=== PATIENT | female | born 1955 | race Caucasian/White ===

== ENCOUNTER → 2017-01-01 | Outpatient (CLI) | payer OTHER ==
[~2017-01-01] MED LIST: AMARYL 2MG T2 MG/TAB PO; CALCIUM + D 6001 TA1 PO; CRESTOR5 MG PO; GLUCOPHAGE XR500 M1 PO; NORCO 325 MG-51 TAB PO; PRINIVIL2.5 MG PO
== END ==
LOC: COL.RAD 07:30
PROVIDERS: Internal Medicine
DX: H54.61 Unqualified visual loss, right eye, normal vision left eye (principal); G31.89 Other specified degenerative diseases of nervous system
CPT/HCPCS: A9585

== ENCOUNTER → 2017-09-20 | Outpatient (CLI) | payer OTHER | LOC: MC.RAD 16:17 | DX: Z12.31 Encounter for screening mammogram for malignant neoplasm of breast (principal) ==

== ENCOUNTER → 2019-02-18 | Outpatient (CLI) | payer OTHER | LOC: MC.RAD 16:30 | DX: Z12.31 Encounter for screening mammogram for malignant neoplasm of breast (principal) ==

== ENCOUNTER → 2020-03-23 | Outpatient (CLI) | payer OTHER | LOC: MC.RAD 08:47 | DX: Z12.31 Encounter for screening mammogram for malignant neoplasm of breast (principal) ==

== ENCOUNTER → 2021-03-30 | Outpatient (CLI) | payer BC | LOC: MC.RAD 08:15 | DX: Z12.31 Encounter for screening mammogram for malignant neoplasm of breast (principal) ==

== ENCOUNTER 2022-01-04 11:13 | Emergency (ER) | payer SELFPAY ==
[~2022-01-04] VITALS: Ht 162.6 cm; Wt 60.5 kg
[2022-01-04 11:37] VITALS: TEMP 98.2
[2022-01-04 14:02] VITALS: BP 160/105; PULSE 72
== END 2022-01-04 14:40 | disposition home or self-care (01) ==
LOC: COL.ER 11:13
DX: S06.0X0A Concussion without loss of consciousness, initial encounter (principal); S01.01XA Laceration without foreign body of scalp, initial encounter; W01.198A Fall on same level from slipping, tripping and stumbling with subsequent striking against other object, initial encounter; Y93.01 Activity, walking, marching and hiking

== ENCOUNTER → 2022-03-13 | Outpatient (CLI) | payer BC | LOC: COL.RAD 09:08 | DX: S32.9XXD Fracture of unspecified parts of lumbosacral spine and pelvis, subsequent encounter for fracture with routine healing (principal); X58.XXXD Exposure to other specified factors, subsequent encounter; R74.8 Abnormal levels of other serum enzymes | CPT/HCPCS: A9503 ==

== ENCOUNTER → 2022-04-25 | Outpatient (CLI) | payer BC | LOC: MC.RAD 14:45 | DX: Z12.31 Encounter for screening mammogram for malignant neoplasm of breast (principal); R92.0 Mammographic microcalcification found on diagnostic imaging of breast ==

== ENCOUNTER → 2022-05-24 | Outpatient (CLI) | payer BC | LOC: MC.RAD 09:45 | DX: R92.0 Mammographic microcalcification found on diagnostic imaging of breast (principal) ==

== ENCOUNTER 2022-07-16 20:52 | Inpatient (IN) | payer MEDICARE, BC ==
[~2022-07-16] VITALS: Ht 157.5 cm; Wt 54.0 kg
[2022-07-16 22:26] LABS: HEMOGLOBIN 12.3 g/dl (12.5-16.0); MEAN CELL VOLUME 85 fl (80.0-100.0); MEAN CORPUSCULAR HEMOGLOBIN 28 pg (27-31); MEAN CORPUSCULAR HGB CONC 34 g/dl (33.0-37.0); MEAN PLATELET VOLUME 10.4 fl (7.4-10.4); PLATELET COUNT 266 K/mm3 (130-400); RED BLOOD COUNT 4.33 M/mm3 (4.10-5.30); REDCELL DISTRIBUTION WIDTH-CV 12.5 % (11.5-14.5)
[2022-07-16 22:31] LABS: HEMATOCRIT 36.7 % (37.0-47.0)
[2022-07-16 22:43] LABS: ALANINE AMINOTRANSFERASE 13 U/L (0-55); ALKALINE PHOSPHATASE 100 U/L (40-150); ANION GAP 16 mmol/L (7-16); AST,SGOT 14 U/L (5-34); BILIRUBIN,TOTAL 1.4 mg/dL (0.2-1.2); BLOOD UREA NITROGEN 13 mg/dL (10-20); CALCIUM 9.6 mg/dL (8.4-10.2); CARBON DIOXIDE 23 mmol/L (23-31); CHLORIDE 94 mmol/L (98-107); CREATININE, serum 0.84 mg/dL (0.57-1.11); GLUCOSE 345 mg/dL (70-99); POTASSIUM 4.2 mmol/L (3.5-4.5); SODIUM 133 mmol/L (136-145); TOTAL PROTEIN 6.9 gm/dL (6.2-8.1)
[2022-07-16 22:48] LABS: BAND 8 % (0-10); EOSINOPHIL 1 % (0-4); LYMPHOCYTE 5 % (20.0-51.0); NEUTROPHILS 80 % (42.0-75.2); PLATELET ESTIMATE NORMAL (NORMAL)
[2022-07-16 23:01] LABS: ACETONE,SERUM NEGATIVE
[2022-07-16 23:19] LABS: MUCOUS Present (NOT PRESENT); SQUAMOUS EPITHELIAL 0-2 /hpf (0-10); URINE BACTERIA None Seen /hpf (NONE SEEN); URINE RBC >50 /hpf (0-2)
[2022-07-16 23:21] LABS: URINE APPEARANCE Clear (CLEAR/HAZY); URINE COLOR Yellow (YELLOW); URINE GLUCOSE 3+ (NEGATIVE); URINE PROTEIN(semi-quant) Negative (NEGATIVE)
[2022-07-16 23:22] LABS: URINE BLOOD 2+ (NEGATIVE); URINE KETONE 3+ (NEGATIVE); URINE NITRATE Negative (NEGATIVE); URINE UROBILINOGEN 0.2 E.U/dL (0.2-1.0)
[2022-07-16 23:24] LABS: TRICYCLIC ANTIDEPRESS URINE NEGATIVE
[2022-07-16] MEDS ORDERED: TOPROL XL 25MG25 MG PO (23:32)
[2022-07-16] MEDS ORDERED: CYMBALTA 60MG60 MG PO (23:32)
[2022-07-16] MEDS ORDERED: MOBIC15 MG PO (23:33)
[2022-07-16] MEDS ORDERED: PRAVACHOL80 MG PO (23:33)
[2022-07-17] VITALS (7 sets, daily range): BP systolic 131–148; BP diastolic 57–74; PULSE 77–109; TEMP 98–99.1
--- NOTE | 2022-07-17 02:25 | NUR ---
PT admitted to room 357 per cart from ED, awake and alert, IVF infusing @125 cc/hr per LH. INT to LAC patent/secure, right arm in sling, bruising to upper shoulder area noted. pt reports mild pain at this time. pt is [place], but responds to some questions appropriately but trouble getting right word out, asked for month, states "sunday" asked for year again "sunday" becomes easily frustrated. oriented to room and poc.
--- NOTE | 2022-07-17 03:27 | NUR ---
Dr Lerma notified of ortho consult
--- NOTE | 2022-07-17 03:31 | NUR ---
Marcella Cortez MATERIAL PLANNING ANALYST notified of 3hr troponin 0.062
--- NOTE | 2022-07-17 04:30 | NUR ---
16f chavez catheter placed using sterile technique, immediate return of cloudy, yellow urine, balloon inflated with 10cc sterile H2O, pt tolerated well.
[2022-07-17 06:26] LABS: BASO # 0.1 K/mm3 (0.0-0.2); BASO % 0.4 % (0.0-2.0); GRAN # 8.9 K/mm3 (1.4-6.5); GRAN % 77.8 % (42.2-75.2); HEMOGLOBIN 10.5 g/dl (12.5-16.0); LYMPH % 8.5 % (20.0-51.0); MEAN CELL VOLUME 85 fl (80.0-100.0); MEAN CORPUSCULAR HEMOGLOBIN 28 pg (27-31); MEAN CORPUSCULAR HGB CONC 33 g/dl (33.0-37.0); MEAN PLATELET VOLUME 11.4 fl (7.4-10.4); MONO # 1.5 K/mm3 (0.1-0.6); PLATELET COUNT 262 K/mm3 (130-400); RED BLOOD COUNT 3.71 M/mm3 (4.10-5.30); REDCELL DISTRIBUTION WIDTH-CV 12.6 % (11.5-14.5)
--- NOTE | 2022-07-17 06:26 | NUR ---
pt continues to have some difficulty finding words, but able to verbalize needs, IVF infusing per piv @125 cc/hr, chavez patent/secure, reports pain as mild with movement, right arm in sling. required SSI @ 0400, feliz. hearing aides in place, does not have her glasses with her.
--- NOTE | 2022-07-17 06:37 | NUR ---
Dr Zayas paged for cardio consult, no return call yet
[2022-07-17 06:38] LABS: HEMATOCRIT 31.5 % (37.0-47.0)
[2022-07-17 07:19] LABS: CALCIUM 8.6 mg/dL (8.4-10.2); CREATININE, serum 0.75 mg/dL (0.57-1.11); POTASSIUM 3.9 mmol/L (3.5-4.5)
--- NOTE | 2022-07-17 08:00 | NUR ---
Patient is resting in bed, alert but partially oriented, hard of hearing and difficulty to express herself. Receiving 125 ml/hr NS and antibiotics per orders. Telemetry in place, AFIB. Assessment completed, no other needs at this time. Call light at reach, bed alarm on.
[2022-07-17 08:03] LABS: COLLECTION METHOD CATHETER
--- NOTE | 2022-07-17 13:35 | NUR ---
Mergers And Acquisitions Associate met with patient to discuss discharge planning. Patient's son, Bart (ph#[phone]) is at bedside and assisted with intake. Patient lives in [place] with her son, Bart and sees Dr. Mendez for primary care. Patient has medications mailed to her home and Bart reports she is normally independent with ADLS. Patient was previously employed as a PT. Patient has a rollator for ambulation. CHRIS reviewed recommendation for post acute rehab and Bart advised patient will likely not consider a SNF, however would be interested in IPR. CHRIS contacted Claudia, IPR Director to give referral. Discharge Plan: IPR Screen
--- NOTE | 2022-07-17 15:21 | NUR ---
Zeinab: Restorationist Situation: peripheral vascular tech went by room on rounds Background: Pt was resting and content Assessment: no needs right now, pt appreciated the visit Recommendation: peripheral vascular tech will follow up as needed
--- NOTE | 2022-07-17 17:46 | NUR ---
Patient has been resting in bed most of the time. Refuses eating but ST swallow test indicates no problems. Continues receiving NS 75ML/HR. ACHS. Awaiting IPR screening. Report will be given to night RN.
[2022-07-18 03:21] VITALS: BP 108/80; PULSE 103; TEMP 98.4
[2022-07-18 06:27] LABS: BASO % 0.4 % (0.0-2.0); EOS % 0.4 % (0.0-4.0); GRAN # 6.1 K/mm3 (1.4-6.5); GRAN % 76.3 % (42.2-75.2); HEMOGLOBIN 10.3 g/dl (12.5-16.0); LYMPH # 0.8 K/mm3 (1.2-3.4); LYMPH % 9.7 % (20.0-51.0); MEAN CELL VOLUME 89 fl (80.0-100.0); MEAN CORPUSCULAR HEMOGLOBIN 30 pg (27-31); MEAN CORPUSCULAR HGB CONC 33 g/dl (33.0-37.0); MEAN PLATELET VOLUME 11.5 fl (7.4-10.4); MONO % 12.7 % (1.7-9.3); PLATELET COUNT 215 K/mm3 (130-400); RED BLOOD COUNT 3.49 M/mm3 (4.10-5.30); REDCELL DISTRIBUTION WIDTH-CV 13.1 % (11.5-14.5)
[2022-07-18 06:57] LABS: CALCIUM 8.5 mg/dL (8.4-10.2); CREATININE, serum 0.73 mg/dL (0.57-1.11); POTASSIUM 3.5 mmol/L (3.5-4.5)
[2022-07-18 06:59] LABS: CHOLESTEROL RISK RATIO 4.1
[2022-07-18 09:00] VITALS: BP 173/74; PULSE 90; TEMP 98.7
[2022-07-18 12:13] VITALS: BP 140/88; PULSE 75; TEMP 98.4
[2022-07-18 16:10] VITALS: BP 178/86; PULSE 80; TEMP 98.7
[2022-07-18 19:43] VITALS: BP 201/89; PULSE 83; TEMP 97.4
[2022-07-18 23:39] VITALS: BP 189/85; PULSE 82; TEMP 98.5
[2022-07-19 03:25] VITALS: BP 174/85; PULSE 77; TEMP 98.6
[2022-07-19 06:29] LABS: CALCIUM 8.5 mg/dL (8.4-10.2); CREATININE, serum 0.74 mg/dL (0.57-1.11); POTASSIUM 3.6 mmol/L (3.5-4.5)
[2022-07-19 06:48] LABS: BASO % 0.3 % (0.0-2.0); EOS # 0.1 K/mm3 (0.0-0.7); EOS % 1.5 % (0.0-4.0); GRAN # 4.6 K/mm3 (1.4-6.5); GRAN % 67.7 % (42.2-75.2); LYMPH % 15.1 % (20.0-51.0); MEAN CELL VOLUME 86 fl (80.0-100.0); MEAN CORPUSCULAR HGB CONC 33 g/dl (33.0-37.0); MEAN PLATELET VOLUME 10.7 fl (7.4-10.4); MONO % 15.1 % (1.7-9.3); PLATELET COUNT 217 K/mm3 (130-400); RED BLOOD COUNT 3.43 M/mm3 (4.10-5.30); REDCELL DISTRIBUTION WIDTH-CV 12.9 % (11.5-14.5)
[2022-07-19 06:52] LABS: HEMATOCRIT 29.6 % (37.0-47.0); HEMOGLOBIN 9.8 g/dl (12.5-16.0); MEAN CORPUSCULAR HEMOGLOBIN 29 pg (27-31)
[2022-07-19 07:15] VITALS: BP 170/87; PULSE 88; TEMP 98.3
--- NOTE | 2022-07-19 08:00 | NUR ---
Patient is lying in bed, alert and more interactive. Receiving 60ml/hr 1/2 NS. Complains of pain in her shoulder. Assessment completed, no other needs at this time. Call light within reach.
[2022-07-19 11:01] VITALS: PULSE 88; TEMP 98.3
[2022-07-19 11:43] VITALS: BP 161/90
--- NOTE | 2022-07-19 14:20 | NUR ---
Edge Stripper collaborated with Claudia, [facility] Director who is still following patient's case and would like to see how patient does with therapy today. Claudia will review this with [facility] Central Sterile Supply Technician. CHRIS updated patient and her family.
[2022-07-19 15:51] VITALS: BP 142/66; PULSE 77; TEMP 98.2
--- NOTE | 2022-07-19 18:46 | NUR ---
Patient has been alert and more oriented. She was able to ambulate in the halls with PT. She asks for pain medication and help to use the commode. She does not eat a lot. Able to take medications po. Guerra in place clear yellow output. Reopt will be given to night RN.
[2022-07-19 20:00] VITALS: BP 168/74; PULSE 71; TEMP 98.8
[2022-07-20 00:35] VITALS: BP 156/78; PULSE 87; TEMP 98.3
[2022-07-20 04:32] VITALS: BP 144/80; PULSE 78; TEMP 98.8
--- NOTE | 2022-07-20 06:21 | NUR ---
alert and oriented, pain controlled with po pain meds, scott patent/secure. required SSI @ HS. rt arm in sling.
[2022-07-20 08:00] VITALS: BP 140/80; PULSE 78; TEMP 98
--- NOTE | 2022-07-20 08:11 | NUR ---
Student will be assisting primary saurabh Quach RN and providing care for this patient from [phone]
[2022-07-20] MEDS ORDERED: NORVASC 5MG5 MG/TAB PO (09:25)
[2022-07-20] MEDS ORDERED: PLAVIX 75MG TAB75 MG PO (09:25)
[2022-07-20] MEDS ORDERED: ASPIRIN 81M81 MG/TA2 PO (09:26)
[2022-07-20] MEDS ORDERED: ROXICODONE 55 MG/TAB PO (09:26)
[2022-07-20] MEDS ORDERED: TYLENOL 325MG325 MG PO (09:27)
[2022-07-20] MEDS ORDERED: COLACE 100100 MG/CAP PO (09:27)
[2022-07-20] MEDS ORDERED: PEPCID 20MG TAB20 MG PO (09:29)
[2022-07-20] MEDS ORDERED: NOVOLOG 100U100 U/M1 SQ (09:33)
[2022-07-20] MEDS ORDERED: LEVEMIR100 U/ML SQ (09:33)
--- NOTE | 2022-07-20 10:39 | NUR ---
Patient to discharge to [facility] today.
[2022-07-20 11:15] VITALS: BP 135/70; PULSE 70; TEMP 98.2
--- NOTE | 2022-07-20 13:53 | NUR ---
Primary nurse was assisted with [phone] patient care by [facility] student Joellen Santos and [employer] instructor Adela SMITH-CANDI RN
== END 2022-07-20 14:58 | DRG 64 ==
LOC: COL.ER 20:52 → MEDICAL 07-17 → COL.ER 07-17 00:20 → MEDICAL 07-17 21:00
PROVIDERS: Nurse Practitioner Family; Nurse Practitioner Primary Care; Student in an Organized Health Care Education/Training Program; ADMIT Internal Medicine
PROC: 4A03X5D Measurement of Arterial Flow, Intracranial, External Approach (ICD-10-PCS; principal; 2022-07-17)
DX: I63.9 Cerebral infarction, unspecified (principal); J18.9 Pneumonia, unspecified organism; I21.A1 Myocardial infarction type 2; G93.49 Other encephalopathy; N39.0 Urinary tract infection, site not specified; E87.2 Acidosis; E87.1 Hypo-osmolality and hyponatremia; R65.10 Systemic inflammatory response syndrome (SIRS) of non-infectious origin without acute organ dysfunction; R47.01 Aphasia; R29.711 NIHSS score 11; S42.021A Displaced fracture of shaft of right clavicle, initial encounter for closed fracture; W01.0XXA Fall on same level from slipping, tripping and stumbling without subsequent striking against object, initial encounter; R47.1 Dysarthria and anarthria; I10 Essential (primary) hypertension; E78.5 Hyperlipidemia, unspecified; D72.829 Elevated white blood cell count, unspecified; D64.9 Anemia, unspecified; E87.8 Other disorders of electrolyte and fluid balance, not elsewhere classified; E11.65 Type 2 diabetes mellitus with hyperglycemia; Z79.84 Long term (current) use of oral hypoglycemic drugs; Y92.89 Other specified places as the place of occurrence of the external cause; Z90.49 Acquired absence of other specified parts of digestive tract; Y93.89 Activity, other specified; Z88.8 Allergy status to other drugs, medicaments and biological substances; Z23 Encounter for immunization
CPT/HCPCS: A4314; A9575; J1650; J1815; J2270; J2543; J7030; Q9967

== ENCOUNTER 2022-09-07 13:44 | Emergency (ER) | payer MEDICARE, BC ==
[~2022-09-07] VITALS: Ht 160 cm; Wt 50.0 kg
[2022-09-07] VITALS (189 sets, daily range): BP systolic 133; BP diastolic 66; PULSE 78; TEMP 97.5; O2SAT 79–99
[~2022-09-07 13:44] MED LIST changes: +ASPIRIN 81M81 MG/TA2 PO; +COLACE 100100 MG/CAP PO; +CYMBALTA 60MG60 MG PO; +INSULIN PEN NE1 EAC1 MC; +LEVEMIR FLEX100 U/ML SQ; +LEVEMIR100 U/ML SQ; +MOBIC15 MG PO; +NORVASC 5MG5 MG/TAB PO; +NOVOLOG 100U100 U/M1 SQ; +PEPCID 20MG TAB20 MG PO; +PLAVIX 75MG TAB75 MG PO; +PRAVACHOL80 MG PO; +ROXICODONE 55 MG/TAB PO; +TOPROL XL 25MG25 MG PO; +TOPROL XL 50MG50 MG PO; +TYLENOL 325MG325 MG PO
[2022-09-07 15:02] LABS: BASO # 0.1 K/mm3 (0.0-0.2); BASO % 0.4 % (0.0-2.0); EOS % 0.2 % (0.0-4.0); GRAN # 12.4 K/mm3 (1.4-6.5); GRAN % 85.3 % (42.2-75.2); HEMOGLOBIN 11.3 g/dl (12.5-16.0); LYMPH # 0.7 K/mm3 (1.2-3.4); LYMPH % 4.5 % (20.0-51.0); MEAN CELL VOLUME 92 fl (80.0-100.0); MEAN CORPUSCULAR HEMOGLOBIN 29 pg (27-31); MEAN CORPUSCULAR HGB CONC 32 g/dl (33.0-37.0); MEAN PLATELET VOLUME 10.5 fl (7.4-10.4); MONO # 1.3 K/mm3 (0.1-0.6); MONO % 9.1 % (1.7-9.3); PLATELET COUNT 285 K/mm3 (130-400); REDCELL DISTRIBUTION WIDTH-CV 13.2 % (11.5-14.5)
[2022-09-07 15:04] LABS: HEMATOCRIT 35.8 % (37.0-47.0)
[2022-09-07 15:19] LABS: ALBUMIN 3.9 gm/dL (3.4-4.8); BILIRUBIN,TOTAL 0.6 mg/dL (0.2-1.2); CREATININE, serum 0.82 mg/dL (0.57-1.11); POTASSIUM 4.2 mmol/L (3.5-4.5); TOTAL PROTEIN 7.1 gm/dL (6.2-8.1)
[2022-09-07 17:31] LABS: COLLECTION METHOD CLEAN CATCH
[2022-09-07 18:07] LABS: PH 5.5 (5.0-8.5); URINE APPEARANCE Cloudy (CLEAR/HAZY); URINE BLOOD 2+ (NEGATIVE); URINE COLOR Yellow (YELLOW); URINE GLUCOSE 2+ (NEGATIVE); URINE KETONE 2+ (NEGATIVE); URINE NITRATE Negative (NEGATIVE); URINE PROTEIN(semi-quant) Negative (NEGATIVE); URINE UROBILINOGEN 0.2 E.U/dL (0.2-1.0)
[2022-09-07 18:22] LABS: SQUAMOUS EPITHELIAL 0-2 /hpf (0-10); URINE BACTERIA None Seen /hpf (NONE SEEN); URINE RBC 20-50 /hpf (0-2)
[2022-09-07] MEDS ORDERED: PERCOCET 325 MG1 TA2 PO ×2 (19:02)
[2022-09-07] MEDS ORDERED: FLOMAX 0.40.4 MG/CAP PO (19:04)
== END 2022-09-07 19:51 | disposition home or self-care (01) ==
LOC: COL.ER 13:44
PROVIDERS: Physician Assistant
DX: N20.2 Calculus of kidney with calculus of ureter (principal); D72.829 Elevated white blood cell count, unspecified; E11.9 Type 2 diabetes mellitus without complications; Z28.310 Unvaccinated for COVID-19
CPT/HCPCS: J2270; J2405; J7030; Q9967

== ENCOUNTER 2022-09-09 12:49 | Inpatient (IN) | payer MEDICARE, BC ==
[~2022-09-09] VITALS: Ht 160 cm; Wt 50.0 kg
[~2022-09-09 12:49] MED LIST changes: +FLOMAX 0.40.4 MG/CAP PO; +PERCOCET 325 MG1 TA2 PO
[2022-09-09 13:17] LABS: BASO # 0.1 K/mm3 (0.0-0.2); BASO % 0.5 % (0.0-2.0); EOS # 0.2 K/mm3 (0.0-0.7); EOS % 1.5 % (0.0-4.0); GRAN # 10.7 K/mm3 (1.4-6.5); GRAN % 86.2 % (42.2-75.2); HEMOGLOBIN 10.2 g/dl (12.5-16.0); LYMPH # 0.3 K/mm3 (1.2-3.4); LYMPH % 2.4 % (20.0-51.0); MEAN CORPUSCULAR HEMOGLOBIN 29 pg (27-31); MEAN CORPUSCULAR HGB CONC 34 g/dl (33.0-37.0); MEAN PLATELET VOLUME 10.6 fl (7.4-10.4); MONO # 1.1 K/mm3 (0.1-0.6); MONO % 8.9 % (1.7-9.3); PLATELET COUNT 213 K/mm3 (130-400); RED BLOOD COUNT 3.51 M/mm3 (4.10-5.30); REDCELL DISTRIBUTION WIDTH-CV 13.3 % (11.5-14.5)
[2022-09-09 13:18] LABS: HEMATOCRIT 30.4 % (37.0-47.0); MEAN CELL VOLUME 87 fl (80.0-100.0)
[2022-09-09 13:20] LABS: PROTHROMBIN TIME 11.4 SECONDS (9.7-12.8)
[2022-09-09 13:23] LABS: PARTIAL THROMBOPLASTIN TIME 31.1 SECONDS (26.0-37.0)
[2022-09-09 13:38] LABS: ALBUMIN 3.5 gm/dL (3.4-4.8); BILIRUBIN,TOTAL 0.6 mg/dL (0.2-1.2); CALCIUM 8.7 mg/dL (8.4-10.2); CREATININE, serum 2.57 mg/dL (0.57-1.11); POTASSIUM 4.5 mmol/L (3.5-4.5)
[2022-09-09 13:59] LABS: AMORPHOUS CRYSTAL Present (NOT PRESENT); MUCOUS Present (NOT PRESENT); SQUAMOUS EPITHELIAL 0-2 /hpf (0-10); URINE BACTERIA Many /hpf (NONE SEEN)
[2022-09-09 14:00] LABS: URINE APPEARANCE Hazy (CLEAR/HAZY); URINE COLOR Yellow (YELLOW); URINE PROTEIN(semi-quant) 1+ (NEGATIVE)
[2022-09-09 14:01] LABS: URINE BLOOD 2+ (NEGATIVE); URINE GLUCOSE Negative (NEGATIVE); URINE KETONE TRACE (NEGATIVE); URINE NITRATE Negative (NEGATIVE); URINE UROBILINOGEN 0.2 E.U/dL (0.2-1.0)
[2022-09-09 14:11] LABS: TROPONIN-I 0.339 ng/mL (0.00-0.033)
[2022-09-09 14:13] LABS: COLLECTION METHOD CATHETER
[2022-09-09 17:23] VITALS: BP 97/49; PULSE 77; TEMP 98
--- NOTE | 2022-09-09 17:25 | NUR ---
Arrived to room 323 via stretcher from ED. Oriented to room and policy. VS currently stable-slight hypotension. Assessment complete-see intervention. Left AC 20g flushes well. Admission orders initiated. Call light in reach. Will monitor.
--- NOTE | 2022-09-09 20:00 | NUR ---
PT IN BED, DRINKING CLEAR LIQUIDS WITHOUT PROBLEM. IS [place]. NEURO CHECK WNL. HAS LEFT BUDDHISM FADING BRUISE AND SCATTERED BRUISING ON ARMS AND LEGS. HAS IVF TO LEFT AC, INFUSING WITHOUT REDNESS OR SWELLING. DENIES PAIN AT THIS TIME. BED ALARM ON FOR PT SAFETY.
[2022-09-09 20:31] VITALS: BP 108/59; PULSE 68; TEMP 97.9
--- NOTE | 2022-09-09 21:01 | NUR ---
REPORTED TROPONIN 0.294 TO CRISTIAN [place].
[2022-09-10] VITALS (13 sets, daily range): BP systolic 94–127; BP diastolic 45–69; PULSE 60–91; TEMP 97–99.6
--- NOTE | 2022-09-10 00:15 | NUR ---
PT ASSISTED TO BSC, VOIDS AND HAS BM. WAS NOT INCONTINENT PRIOR TO GETTING UP. BACK TO BED. EDUCATED ON NPO STATUS AND ORAL LIQUIDS REMOVED.
--- NOTE | 2022-09-10 01:00 | NUR ---
Patient care, medication administration and nursing documentation occurred during a Daylight Savings Time Change.
--- NOTE | 2022-09-10 04:20 | NUR ---
PT COMPLAINS OF BACK PAIN, ES TYLENOL 1000MG PO GIVEN WITH SIP OF WATER. WAS UP TO BSC, VOIDS AND HAS LARGE BM. BACK TO BED WITH ONE ASSIST.
[2022-09-10 07:21] LABS: BASO % 0.4 % (0.0-2.0); EOS % 0.5 % (0.0-4.0); GRAN # 6.5 K/mm3 (1.4-6.5); GRAN % 78.8 % (42.2-75.2); LYMPH # 0.4 K/mm3 (1.2-3.4); LYMPH % 4.5 % (20.0-51.0); MEAN CELL VOLUME 89 fl (80.0-100.0); MEAN CORPUSCULAR HGB CONC 32 g/dl (33.0-37.0); MONO # 1.3 K/mm3 (0.1-0.6); MONO % 15.3 % (1.7-9.3); PLATELET COUNT 200 K/mm3 (130-400); RED BLOOD COUNT 2.78 M/mm3 (4.10-5.30); REDCELL DISTRIBUTION WIDTH-CV 13.5 % (11.5-14.5)
[2022-09-10 07:33] LABS: ALBUMIN 2.5 gm/dL (3.4-4.8); BILIRUBIN,TOTAL 0.4 mg/dL (0.2-1.2); CREATININE, serum 2.31 mg/dL (0.57-1.11); POTASSIUM 3.8 mmol/L (3.5-4.5); TOTAL PROTEIN 5.2 gm/dL (6.2-8.1)
[2022-09-10 07:34] LABS: HEMATOCRIT 24.6 % (37.0-47.0); HEMOGLOBIN 7.9 g/dl (12.5-16.0); MEAN CORPUSCULAR HEMOGLOBIN 28 pg (27-31)
[2022-09-10 07:44] LABS: TROPONIN-I 0.197 ng/mL (0.00-0.033)
--- NOTE | 2022-09-10 08:00 | NUR ---
Dr Malone notified of critical troponin of 0.197.
--- NOTE | 2022-09-10 09:31 | NUR ---
To OR at this time.
--- NOTE | 2022-09-10 10:05 | NUR ---
SW went to meet patient to complete intake. Patient was on the way to a procedure. SW will follow up to complete intake.
--- NOTE | 2022-09-10 17:57 | NUR ---
Patient had an uneventful day. Is A&Ox4. Has denied pain/nausea/shortness of breath. Tolerating diet. VS remain stable. Denies current needs. Call light in reach. Will monitor.
--- NOTE | 2022-09-10 20:07 | NUR ---
PT REPORTS HEADACHE, HS MEDS GIVEN INCLUDING ES TYLENOL 1000MG PO. PT IS ALERT AND ORIENTED X4. HAS IVF TO LEFT AC INFUSING WITHOUT PROBLEM. VOIDING IN THE BATHROOM, AMBULATES WITH ONE ASSIST AND WALKER. HAVING LOOSE STOOLS.
[2022-09-11] VITALS (9 sets, daily range): BP systolic 115–142; BP diastolic 57–77; PULSE 63–93; TEMP 97.7–98.7
--- NOTE | 2022-09-11 02:15 | NUR ---
PT REPORTS HEADACHE, NEW ORDER FOR TRAMADOL OBTAINED FROM CRISTIAN [place]. MEDICATED WITH ES TYLENOL 1000MG PO AND TRAMADOL 50MG PO AT THIS TIME.
--- NOTE | 2022-09-11 04:00 | NUR ---
PT REPORTS HER HEADACHE HAS RESOLVED.
[2022-09-11 06:55] LABS: BASO % 0.6 % (0.0-2.0); EOS # 0.1 K/mm3 (0.0-0.7); EOS % 1.2 % (0.0-4.0); GRAN # 4.7 K/mm3 (1.4-6.5); GRAN % 71.4 % (42.2-75.2); LYMPH # 0.5 K/mm3 (1.2-3.4); LYMPH % 7.6 % (20.0-51.0); MEAN CELL VOLUME 90 fl (80.0-100.0); MEAN CORPUSCULAR HGB CONC 31 g/dl (33.0-37.0); MEAN PLATELET VOLUME 10.9 fl (7.4-10.4); MONO # 1.2 K/mm3 (0.1-0.6); MONO % 18.6 % (1.7-9.3); PLATELET COUNT 207 K/mm3 (130-400); RED BLOOD COUNT 2.89 M/mm3 (4.10-5.30); REDCELL DISTRIBUTION WIDTH-CV 13.6 % (11.5-14.5)
[2022-09-11 07:02] LABS: HEMATOCRIT 26.1 % (37.0-47.0); HEMOGLOBIN 8.2 g/dl (12.5-16.0); MEAN CORPUSCULAR HEMOGLOBIN 28 pg (27-31)
[2022-09-11 07:03] LABS: ALBUMIN 2.4 gm/dL (3.4-4.8); BILIRUBIN,TOTAL 0.3 mg/dL (0.2-1.2); CALCIUM 7.1 mg/dL (8.4-10.2); CREATININE, serum 2.37 mg/dL (0.57-1.11); POTASSIUM 3.4 mmol/L (3.5-4.5); TOTAL PROTEIN 5.1 gm/dL (6.2-8.1)
--- NOTE | 2022-09-11 09:25 | NUR ---
CHRIS met with the patient to discuss discharge plan. The patient lives in [place]. She states that her son, Bart (ph#[phone]), lives with her part-time. She reports independence with ADLs and has a walker. The patient's PCP is Dr. Karyn Mendez and she receives her medications from [facility]. The patient does not have a DPOA-HC, but she was interested in completing one while here. CHRIS provided the form. The patient verbalized that she would like to designate her sister, Marge De La Vega ([phone]), and her other sister, Kellie Chavez (ph#[phone]). Marge lives in [place] and Kellie Chavez lives in [place]. CHRIS and JAVIER Steinberg, witnessed the patient's signature. CHRIS provided the patient with the original and some copies. CHRIS placed a copy in the patient's chart. The patient plans to return home upon discharge. She states that her son will be home, when she discharges. PT is recommending home health. CHRIS disussed this with the patient and provided her with Medicare.gov's list of home health agencies that serve [place]. The patient states that she was set up with [facility] after her last hospital stay and she would be okay with being set up with [facility] again. CHRIS contacted and faxed a referral to José Miguel at [facility]. José Miguel states that they are able to accept the patient. *Discharge plan: home with son and home health*
--- NOTE | 2022-09-11 17:45 | NUR ---
Alert and oriented; finishing her dinner at this time. Requesting to use the bathroom. Assisted up to the restroom with one assist and a walker. Obtained urine specimen. Returned to bed; call light left within reach.
--- NOTE | 2022-09-11 18:32 | NUR ---
Discontinued neuro checks per hospitalist as patient is alert and oriented with no neurological deficits.
--- NOTE | 2022-09-11 21:50 | NUR ---
PT IV SITE TO LT AC LEAKING, NEW SITE STARTED TO LT INNER WRIST, #22 INSYTE ON SECOND ATTEMPT. IVF AT 50CC/HR INFUSING WITHOUT PROBLEM. HS MEDS GIVEN INCLUDING TRAMADOL FOR BACK PAIN. NOTED REDDENED COCCYX WITH 2 SMALL OPEN AREAS, BARRIER CREAM APPLIED.
--- NOTE | 2022-09-12 00:30 | NUR ---
PT VOIDING PINK COLORED URINE. NO FURTHER LOOSE STOOLS, STILL NEED GI PANEL. DENIES PAIN WITH URINATION.
[2022-09-12 05:11] VITALS: BP 128/65; PULSE 84; TEMP 98.7
--- NOTE | 2022-09-12 05:14 | NUR ---
REPORTED PINK URINE TO CRISTIAN [place], ADVISES JUST TO WATCH FOR NOW. NO NEW ORDERS.
[2022-09-12 06:47] LABS: BASO % 0.5 % (0.0-2.0); EOS # 0.1 K/mm3 (0.0-0.7); EOS % 1.5 % (0.0-4.0); GRAN # 4.5 K/mm3 (1.4-6.5); GRAN % 69.2 % (42.2-75.2); LYMPH # 0.6 K/mm3 (1.2-3.4); LYMPH % 8.6 % (20.0-51.0); MEAN CELL VOLUME 86 fl (80.0-100.0); MEAN CORPUSCULAR HGB CONC 33 g/dl (33.0-37.0); MEAN PLATELET VOLUME 10.5 fl (7.4-10.4); MONO # 1.3 K/mm3 (0.1-0.6); MONO % 19.6 % (1.7-9.3); PLATELET COUNT 229 K/mm3 (130-400); RED BLOOD COUNT 3.21 M/mm3 (4.10-5.30); REDCELL DISTRIBUTION WIDTH-CV 13.3 % (11.5-14.5)
[2022-09-12 06:49] LABS: HEMATOCRIT 27.5 % (37.0-47.0); HEMOGLOBIN 9.1 g/dl (12.5-16.0); MEAN CORPUSCULAR HEMOGLOBIN 28 pg (27-31)
[2022-09-12 07:12] LABS: ALBUMIN 2.7 gm/dL (3.4-4.8); BILIRUBIN,TOTAL 0.4 mg/dL (0.2-1.2); CALCIUM 7.4 mg/dL (8.4-10.2); CREATININE, serum 1.65 mg/dL (0.57-1.11); POTASSIUM 3.4 mmol/L (3.5-4.5); TOTAL PROTEIN 5.1 gm/dL (6.2-8.1)
[2022-09-12 07:43] VITALS: BP 150/74; PULSE 75; TEMP 98.4
--- NOTE | 2022-09-12 09:00 | NUR ---
Pt. sitting up in bed. Pt. is A&OX3, assessment complete. IV to lt. wrist patent, IV fluids infusing per orders. Pt. denies pain or other needs, call light within reach.
[2022-09-12 11:41] VITALS: BP 148/69; PULSE 77; TEMP 98.4
[2022-09-12 15:51] VITALS: BP 130/73; PULSE 85; TEMP 98.6
--- NOTE | 2022-09-12 15:53 | NUR ---
Comb Tender met with patient to discuss plans for voting. Unfortunately since patient is registered to vote in [facility], SW cannot assist in securing ballot.
[2022-09-12 21:40] VITALS: BP 144/73; PULSE 83; TEMP 98.6
[2022-09-13 00:14] VITALS: BP 138/83; PULSE 78; TEMP 98.8
[2022-09-13 04:29] VITALS: BP 152/71; PULSE 79; TEMP 98.7
[2022-09-13 07:05] LABS: MEAN CELL VOLUME 84 fl (80.0-100.0); MEAN CORPUSCULAR HGB CONC 34 g/dl (33.0-37.0); MEAN PLATELET VOLUME 10.5 fl (7.4-10.4); PLATELET COUNT 263 K/mm3 (130-400); RED BLOOD COUNT 3.43 M/mm3 (4.10-5.30); REDCELL DISTRIBUTION WIDTH-CV 13.2 % (11.5-14.5)
[2022-09-13 07:07] LABS: HEMATOCRIT 28.9 % (37.0-47.0); HEMOGLOBIN 9.8 g/dl (12.5-16.0); MEAN CORPUSCULAR HEMOGLOBIN 29 pg (27-31)
[2022-09-13 07:33] LABS: CALCIUM 7.6 mg/dL (8.4-10.2); CREATININE, serum 1.17 mg/dL (0.57-1.11); POTASSIUM 3.6 mmol/L (3.5-4.5)
[2022-09-13 07:40] VITALS: BP 134/69; PULSE 85; TEMP 98.8
[2022-09-13] MEDS ORDERED: CEPHALEXIN500 M1 PO (08:21)
[2022-09-13] MEDS ORDERED: GLUCOPHAGE XR500 M1 PO (08:26)
[2022-09-13 08:50] LABS: BAND 4 % (0-10); BASOPHIL 1 % (0-2); EOSINOPHIL 2 % (0-4); LYMPHOCYTE 10 % (20.0-51.0); NEUTROPHILS 62 % (42.0-75.2); PLATELET ESTIMATE NORMAL (NORMAL)
--- NOTE | 2022-09-13 08:51 | NUR ---
Pt assessment complete. Pt is laying in bed upon entry, she is A/O x4. Her breathing is even and unlabored on RA, pt denies SOB. No pain at this time. Denies N/V. Awaiting breakfast at this time. Anticipating discharge today. IV to L wrist leaking and hurting patient, dc'd. Fall precautions in place. No further needs.
[2022-09-13 11:43] VITALS: BP 150/67; PULSE 92; TEMP 97.2
--- NOTE | 2022-09-13 13:00 | NUR ---
Discharge paperwork and instructions reviewed with patient and her son. All questions answered at this time. IV dc'd earlier in shift. Pt wheeled out of facility by staff member.
--- NOTE | 2022-09-13 13:20 | NUR ---
Patient to discharge home today. CHRIS met with patient and presented IM form. Patient verbalized understanding and provided signature. SW placed form in chart and provided copy to patient. Patient is agreeable to [facility]. CHRIS contacted José at [facility] and faxed discharge orders. Discharge Plan: Home with [facility] today
== END 2022-09-13 13:00 | disposition home health service (06) | DRG 853 ==
LOC: COL.ER 12:49 → SURG 16:36
PROVIDERS: Emergency Medicine; Physician Assistant; Urology; ADMIT Internal Medicine
PROC: 0T778DZ Dilation of Left Ureter with Intraluminal Device, Via Natural or Artificial Opening Endoscopic (ICD-10-PCS; principal; 2022-09-10 09:30)
PROC: BT1F1ZZ Fluoroscopy of Left Kidney, Ureter and Bladder using Low Osmolar Contrast (ICD-10-PCS; 2022-09-10 09:30)
PROC: 0JH602Z Insertion of Monitoring Device into Chest Subcutaneous Tissue and Fascia, Open Approach (ICD-10-PCS; 2022-09-13)
DX: A41.9 Sepsis, unspecified organism (principal); G93.41 Metabolic encephalopathy; I21.A1 Myocardial infarction type 2; N17.9 Acute kidney failure, unspecified; E87.20 Acidosis, unspecified; N20.2 Calculus of kidney with calculus of ureter; R65.20 Severe sepsis without septic shock; I10 Essential (primary) hypertension; E78.5 Hyperlipidemia, unspecified; E11.9 Type 2 diabetes mellitus without complications; B95.7 Other staphylococcus as the cause of diseases classified elsewhere; E87.6 Hypokalemia; D64.9 Anemia, unspecified; E87.8 Other disorders of electrolyte and fluid balance, not elsewhere classified; I95.9 Hypotension, unspecified; Z90.49 Acquired absence of other specified parts of digestive tract; Z88.8 Allergy status to other drugs, medicaments and biological substances; Z86.73 Personal history of transient ischemic attack (TIA), and cerebral infarction without residual deficits; Z79.82 Long term (current) use of aspirin; Z79.4 Long term (current) use of insulin; Z23 Encounter for immunization
CPT/HCPCS: A9284; C1769; C2617; J0696; J1644; J1815; J2270; J2405; J2543; J2704; J3010; J7030; Q9967

== ENCOUNTER 2023-12-13 13:03 | Outpatient (CLI) | payer MEDICARE, OTHER ==
[~2023-12-13] VITALS: Ht 160 cm; Wt 54.0 kg
[~2023-12-13 13:03] MED LIST changes: +CEPHALEXIN500 M1 PO; +CIPRO 500MG TA500 MG PO; +ELIQUIS 5MG PO; +LIPITOR 40MG TA40 MG PO; +MULTI-VITAMIN W1 TA1 PO; +PROTONIX 40MG T40 MG PO; +PYRIDIUM 100MG100 MG PO; +VITAMIN D31000 I1 PO; +VITAMIN D31000 IU PO
[2023-12-13] MEDS ORDERED: Denosumab 60 MG/ML SYRINGE SQ ONE (13:30)
[2023-12-13 14:22] VITALS: BP 117/61; PULSE 69; TEMP 99
== END 2023-12-13 13:50 | disposition home or self-care (01) ==
LOC: EUO 13:03
DX: M81.0 Age-related osteoporosis without current pathological fracture (principal)
CPT/HCPCS: J0897

== ENCOUNTER 2024-06-13 15:02 | Outpatient (CLI) | payer MEDICARE, OTHER ==
[~2024-06-13] VITALS: Ht 160 cm; Wt 56.2 kg
[2024-06-13] MEDS ORDERED: Denosumab 60 MG/ML SYRINGE SQ ONE (15:15)
[2024-06-13 15:22] VITALS: BP 129/63; PULSE 78; TEMP 98.9
== END 2024-06-13 15:30 ==
LOC: EUO 15:02
DX: M81.0 Age-related osteoporosis without current pathological fracture (principal)
CPT/HCPCS: J0897